=== PATIENT | female | born 1955 | race Hispanic/Latino ===

== ENCOUNTER 2021-12-12 08:03 | Emergency (ER) | payer SELFPAY ==
[~2021-12-12] VITALS: Ht 154.9 cm; Wt 81.6 kg
[2021-12-12] MEDS ORDERED: ACETAMINOPHEN 325 MG TAB PO ONE (08:30)
[2021-12-12] MEDS ORDERED: CYCLOBENZAPRINE HCL 10 MG TAB PO ONE (08:30)
[2021-12-12] MEDS ORDERED: CYCLOBENZAPRINE10 MG PO (09:26)
== END 2021-12-12 11:10 | disposition home or self-care (01) ==
LOC: ER 08:14
DX: M25.512 Pain in left shoulder (principal); M79.18 Myalgia, other site; I10 Essential (primary) hypertension; E11.9 Type 2 diabetes mellitus without complications
CPT/HCPCS: 99283